=== PATIENT | male | born 1960 | race Caucasian/White ===

== ENCOUNTER 2020-04-25 01:36 | Inpatient (IN) | payer MEDICARE, MEDICAID ==
[~2020-04-25] VITALS: Ht 180.3 cm; Wt 86.0 kg
[~2020-04-25 01:36] MED LIST: ANDROGEL; ASPI-527 PO; FLAG500T PO; LEVA750T7 PO; LISI-542 PO; METF500T13 PO; MULTCAP PO; Mag Ox PO; OMEP1CAP73 PO; SIMV20TA22 PO; VIAG100T PO; VITA250T20 PO; ZINC220T6 PO
[2020-04-25] MEDS ORDERED: TEST1.622 TOP (02:00)
[2020-04-25] MEDS ORDERED: LIDOCAINE 2% 5ML JELLY UROJET TOP ONE (02:15)
[2020-04-25 02:26] LABS: HEMOGLOBIN 13.2 g/dl (13.5-17.5); MEAN CORPUSCULAR HEMOGLOBIN 30.7 pg (27.0-33.0); PLATELET COUNT, AUTOMATED 253 10^3/uL (150-450); WHITE BLOOD COUNT 10.6 10^3/uL (4.0-10.0)
[2020-04-25 03:22] LABS: BLOOD UREA NITROGEN 18 MG/DL (7-18); CALCIUM LEVEL 8.7 MG/DL (8.8-10.2); CARBON DIOXIDE LEVEL 23 MEQ/L (21-32); CHLORIDE LEVEL 96 MEQ/L (98-107); CREATININE FOR GFR 0.91 MG/DL (0.70-1.30); GLOMERULAR FILTRATION RATE > 60.0 (>49); GLUCOSE, FASTING 416 MG/DL (70-100); POTASSIUM SERUM 4.7 MEQ/L (3.5-5.1); SODIUM LEVEL 129 MEQ/L (136-145)
--- NOTE | 2020-04-25 04:26 | REPVR ---
PROCEDURE INFORMATION: Exam: CT Abdomen And Pelvis Without Contrast Exam date and time: 04/25/2020 3:23 AM Age: 59 years old Clinical indication: Other: Hematuria; Patient HX: Blood in catheter TECHNIQUE: Imaging protocol: Computed tomography of the abdomen and pelvis without contrast. Radiation optimization: All CT scans at this facility use at least one of these dose optimization techniques: automated exposure control; mA and/or kV adjustment per patient size (includes targeted exams where dose is matched to clinical indication); or iterative reconstruction. COMPARISON: CR Pelvis, complete 01/27/2014 9:19 PM FINDINGS: Mediastinal space: Small hiatal hernia. Liver: Hepatic steatosis. Gallbladder and bile ducts: Normal. No calcified stones. No ductal dilation. Pancreas: Normal. No ductal dilation. Spleen: Normal. No splenomegaly. Adrenals: Normal. No mass. Kidneys and ureters: There is right greater than left hydroureteronephrosis. No discrete obstructing calculus is visualized. Stomach and bowel: Diverticulosis without diverticulitis. Appendix: No evidence of appendicitis. Intraperitoneal space: Unremarkable. No free air. No significant fluid collection. Vasculature: Vascular calcification. Lymph nodes: Unremarkable. No enlarged lymph nodes. Bladder: Urinary bladder is decompressed by a Sun catheter. There are infiltrative changes about the urinary bladder. Reproductive: Unremarkable as visualized. Bones/joints: There are degenerative and postoperative changes involving the spine. There are degenerative changes involving the hips. Chronic deformity involving the right pelvis. Soft tissues: There is prominent decubitus ulceration at the right posterior pelvis. IMPRESSION: 1. Right greater than left hydroureteronephrosis without discrete obstructing calculus. 2. Urinary bladder is decompressed by a Sun catheter and suboptimally evaluated. There are however adjacent infiltrative changes concerning for possible cystitis. Please correlate clinically. 3. There is prominent decubitus ulceration at the right posterior pelvis/hip. 4. Additional findings as above. Electronically signed by: Doc Crawford On 04/25/2020 04:26:06 AM
[2020-04-25] MEDS ORDERED: DEXTROSE 50% 50 ML SYRINGE IV PRN (05:00)
[2020-04-25] MEDS ORDERED: GLUCAGON INJ 1MG VIAL SC PRN (05:00)
[2020-04-25] MEDS ORDERED: GLUCOSE 4GM CHEW TABLET PO PRN (05:00)
[2020-04-25] MEDS ORDERED: AMIT75TA PO (05:16)
[2020-04-25] MEDS ORDERED: ACET-683 PO (05:16)
[2020-04-25] MEDS ORDERED: SIMV40TA20 PO (05:16)
[2020-04-25] MEDS ORDERED: JANU100T PO (05:16)
[2020-04-25] MEDS ORDERED: METF-838 PO (05:17)
--- NOTE | 2020-04-25 05:50 | HPEPDOC ---
General Date of Admission 04/25/2020 Date of Service: Apr 25, 2020 Attending Physician: BJORN ADAMS MD Chief Complaint The patient is a 59-year-old male admitted with a reason for visit of Blood In Catheter. Source: Patient Exam Limitations: No limitations Timing/Duration: 24 hours Severity: Severe Associated Symptoms: Other (gross hematuria) History of Present Illness 59 yo M with paraplegia with a chronic indwelling phillip, DM2, stage 4 decubitus ulcer who presented to the ED with gross hematuria in his phillip. He otherwise denied any fever, chills, abdominal pain, back pain, recent weight loss. In the ED, he was hemodynamically stable and afebrile an his phillip was exchanged and placed on CBI with clearance of the gross hematuria. Urology was made aware of his presentation and will be officially consulted by medicine to see him tomorrow. Work up was notable for hgb 13.2, WBC 10.6, platelets 253, na 129, K 4.7, Cr 0.91, glucose of 416. CT A/P showed R>L hydroureteronephrosis without obvious calculus, while the bladder was decompressed with phillip in place but did show some infiltrative changes c/f cystitis. He is now being admitted to [facility] for gross hematuria and probable cystitis. Home Medications Scheduled Ascorbic Acid (Vitamin C) 250 Mg Tab, 500 MG PO BID, (Reported) Lisinopril (Lisinopril) 5 Mg Tab, 5 MG PO DAILY, (Reported) Metformin HCl (Metformin HCl ER) 500 Mg Tab.er.24h, 1,000 MG PO BID, (Reported) LUNCH AND DINNER Multivitamin (Multivitamins) 1 Cap Cap, 1 CAP PO DAILY, (Reported) LUNCH Omeprazole (Omeprazole) 20 Mg Cap, 20 MG PO DAILY, (Reported) Simvastatin (Simvastatin) 40 Mg Tablet, 40 MG PO QHS, (Reported) Sitagliptin Phosphate (Januvia) 100 Mg Tablet, 100 MG PO DAILY, (Reported) Testosterone (Testosterone) 75 Gm Gel..bridge [employer]enter, 150 GM TOP DAILY, (Reported) Scheduled PRN Acetaminophen (Acetaminophen) 500 Mg Tablet, 1,000 MG PO Q6H PRN for PAIN, (Reported) Amitriptyline HCl (Amitriptyline HCl) 75 Mg Tablet, 18.75 MG PO QHS PRN for LEG CRAMPS, (Reported) TAKES 1/4 TO 1 TABLET Allergies Coded Allergies: Penicillins (Verified Allergy, Unknown, 04/25/20) sulfamethoxazole (Verified Allergy, Unknown, 04/25/20) trimethoprim (Verified Allergy, Unknown, 04/25/20) Past Medical History Medical History paraplegia with a chronic indwelling phillip, DM2, stage 4 decubitus ulcer Family History Significant Family History: No pertinent family hx Social History * Smoker: Denies Alcohol: Denies Drugs: denies Recent Travel/Sick Contacts: Denies: Recent travel, Recent sick contacts Psychosocial History: No pertinent psych hx A-FIB/CHADSVASC A-FIB History Current/History of A-Fib/PAF?: No Current PO Anticoag Therapy: No Age/Risk Factor Scoring CHADSVASC: CHADSVASC Response (Comments) Value Age Risk Factor Age < 65 years old 0 Gender Risk Factor Male 0 Hx of CHF No 0 Hx of HTN Yes 1 Hx of Stroke/TIA/or VTE No 0 Hx of Diabetes Yes 1 Hx of Vascular Disease No 0 Total 2 Treatment Treatment ordered: NONE Reason Anticoagulant not given: Not indicated/[id number] Review of Systems Constitutional: Denies: Chills, Fever, Night Sweats Eyes: Denies: Pain, Vision change ENT: Denies: Head Aches, Ear Pain, Dysphagia Skin: Denies: Rash, Lesions, Breakdown Pulmonary: Denies: Dyspnea, Cough Cardiovascular: Denies: Chest Pain, Palpitations, Orthopnea, Paroxysmal Noc. Dy spnea, Lt Headedness Gastrointestinal: Denies: Nausea, Vomiting, Abdominal Pain, Diarrhea Genitourinary: Reports: Hematuria, Retention (chronic neurogenic bladder with chronic indwelling phillip); Denies: Dysuria, Frequency Hematologic: Denies: Bruising, Bleeding Excessively Endocrine: Denies: Polydipsia, Polyphagia, Polyuria, Heat Intolerance, Cold Intolerance, Other Endocrine Sx Musculoskeletal: Denies: Neck Pain, Back Pain, Joint Pain, Muscle Pain, Spasms Neurological: Denies: Weakness, Numbness, Change in speech, Confusion Psych: Reports: Mood Normal; Denies: Depression, Memory Issues Physical Examination General Exam: Positive: Alert, No Acute Distress Eye Exam: Positive: PERRLA, Conjunctiva & lids normal, EOMI; Negative: Sclera icteric ENT Exam: Positive: Atraumatic, Mucous membr. moist/pink, Pharynx Normal Neck Exam: Positive: Supple; Negative: JVD, thyromegaly Chest Exam: Positive: Clear to auscultation, Normal air movement Heart Exam: Positive: Rate Normal, Regular Rhythm, Normal S1, Normal S2; Negative: Murmurs, Rubs Abdomen Exam: Positive: Normal bowel sounds, Soft, Other (obese, with hyperpigmented/erythematous raised keloidal scars over abdomen); Negative: Tenderness Extremity Exam: Positive: Other Skin Exam: Positive: Other skin issue ( hyperpigmented/erythematous raised keloidal scars over abdomen with one with fresh scab, no drainage. Has sacral packed wound) Neuro Exam: Positive: Cranial Nerves 3-12 NL; Negative: Strength at 5/5 X4 ext (5/5 BLE. no strength in LE) Psych Exam: Positive: Mental status NL, Mood NL, Oriented x 3 Vital Signs Vital Signs Date Time Temp Pulse Resp B/P (MAP) Pulse Ox O2 Delivery O2 Flow Rate FiO2 04/25/20 04:31 104 18 97 Room Air 04/25/20 04:30 103/53 (70) 04/25/20 03:01 98.2 Laboratory Data Labs 24H Laboratory Tests 2 04/25/20 02:21: Nucleated Red Blood Cells % (auto) 0.0, Anion Gap 10, Glomerular Filtration Rate > 60.0, Calcium Level 8.7L 04/25/20 02:27: Bedside Glucose (Misc Panel) 419H CBC/BMP Laboratory Tests 04/25/20 02:21 Assessment/Plan 59 yo M with paraplegia with a chronic indwelling phillip, DM2, stage 4 decubitus ulcer who presented to the ED with gross hematuria in his phillip now being admitted to medicine for gross hematuria and probable cystitis. Gross hematuria in the setting of probable cystitis, with a chronic phillip -s/p CBI with resolution of hematuria -Urology aware, consultation order placed, day team to call in the morning -H/H stable -empirically treat for cystitis as below Probable cystitis -empiric cipro DM: -hold home januvia and metformin -SSI -FSBG AC/HS -hypoglycemia protocol GERD: -continue home lomeprazole Paraplegia: -continue home lelavil PRN HLD: -continue home lsimvastatin HTN: -continue home lisinopril DVT ppx: DMITRIY and sequentials Plan / VTE VTE Prophylaxis Ordered?: Yes BJORN ADAMS MD Apr 25, 2020 05:20
[2020-04-25 06:27] VITALS: BP 114/66
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
--- NOTE | 2020-04-25 07:49 | IPNPDOC ---
Date Seen The patient was seen on 04/25/20. Progress Note SUBJECTIVE: Patient was seen and examined at bedside. States that feels warm, feverish. Denies chest pain, n/v/d, shortness of breath. Denies abdominal pain. Hematuria has improved. He states that his draining wound on sacrum/buttock has been there for about 5 years. He has no sensation below waist. has not seen wound care. He changes dressings himself OBJECTIVE PHYSICAL EXAMINATION: VITAL SIGNS: Please see below. GENERAL: flushed apperance HEENT: PERRLA, EOMI CARDIOVASCULAR: RRR, normal S1, S2. RESPIRATORY: lungs CTAB. ABDOMINAL: soft, non tender BACK: noted draining ulcer on posterior R buttock, no obvious cellulitis. Sensation absent. EXTREMITIES: muscles wasting in BLE NEUROLOGICAL: parapalegic. No sensation below waist PSYCHOLOGICAL: calm, cooperative LABORATORY DATA, IMAGING STUDIES, MICROBIOLOGY: Please see below. CT abdo/pelvis: IMPRESSION: 1. Right greater than left hydroureteronephrosis without discrete obstructing calculus. 2. Urinary bladder is decompressed by a Phillip catheter and suboptimally evaluated. There are however adjacent infiltrative changes concerning for possible cystitis. Please correlate clinically. 3. There is prominent decubitus ulceration at the right posterior pelvis/hip. 4. Additional findings as above. Renal US: IMPRESSION: Mild right hydronephrosis. Mild prominence the left renal pelvis. DVT prophylaxis ordered?: Lovenox ASSESSMENT AND PLAN: 59 yo M with paraplegia with a chronic indwelling phillip, DM2, stage 4 decubitus ulcer who presented to the ED with gross hematuria in his phillip now being admitted to medicine for gross hematuria and probable cystitis. Given large draining posterior hip/pelvic wound, obtain MRI pelvis to r/o osteomyelitis. Gross hematuria in the setting of probable cystitis, with a chronic phillip - patient changes phillip at home [id number] - CBI overnight, hematuria significantly improved, phillip draining light tea colored urine - HH stable - urology consulted, renal US reviewed. Hydronephrosis improved. C.w monthly phillip changes. Hematuria likely 2/2 cystitis draining sacral decubitus ulcer suspected osteomyelitis - CT c/w posterio pelvic/hip ulcer - on exam, deep, draining - has no wound care f/u - uncontrolled DM2 - given fever, leukocytosis, will obtain MRI wwo contrast to r/o osteomyelitis - continue cipro 400 mg q12h, add vancomycin - obtain blood cultures - MRSA screen - wound care with Dr. Alberto, will call in am Probable cystitis -ciprofloxacin - f/u urine cx DM2: - hold home januvia and metformin - A1c 10.5 - SSI - FSBG AC/HS - BG 400s - start lantus 10 units qhs - lispro 5 units TIDAC - hypoglycemia protocol GERD: -continue home lomeprazole Paraplegia: -continue home lelavil PRN - q2h turning HLD: -continue home simvastatin HTN: -continue home lisinopril DVT ppx: DMITRIY and sequentials VS, I&O, 24H, Fishbone Vital Signs/I&O Vital Signs Date Time Temp Pulse Resp B/P (MAP) Pulse Ox O2 Delivery O2 Flow Rate FiO2 04/25/20 06:27 99.4 118 20 114/66 (82) 96 Room Air Laboratory Data 24H LABS Laboratory Tests 2 04/25/20 02:21: Nucleated Red Blood Cells % (auto) 0.0, Anion Gap 10, Glomerular Filtration Rate > 60.0, Calcium Level 8.7L 04/25/20 02:27: Bedside Glucose (Misc Panel) 419H 04/25/20 07:33: Bedside Glucose (Misc Panel) 378H CBC/BMP Laboratory Tests 04/25/20 02:21 Microbiology Microbiology 04/25/20 Urine Culture, Received Pending BANDAR SEGOVIA MD Apr 25, 2020 07:49
[2020-04-25] MEDS: HumaLOG INSULIN (NovoLOG) PER UNIT SC SCH ×4 (08:48→22:36)
[2020-04-25 08:58] LABS: THYROID STIMULATING HORMONE 1.54 uIU/ML (0.358-3.740)
[2020-04-25] MEDS ORDERED: CIPROFLOXACIN 400 MG in IV 1 EA IV SCH (09:00)
[2020-04-25 09:37] LABS: HEMOGLOBIN A1c 10.5 %
--- NOTE | 2020-04-25 09:55 | REPVR ---
PROCEDURE INFORMATION: Exam: US Retroperitoneal Limited, Kidneys Exam date and time: 04/25/2020 9:41 AM Age: 59 years old Clinical indication: Condition or disease; Other: Marvin hydroureteronephrosis; Additional info: Bl hydroureteronephrosis. With resistive indices please TECHNIQUE: Imaging protocol: Real-time ultrasound of the retroperitoneum with image documentation. Examination was focused on the kidneys. COMPARISON: CT ABD PELVIS W/O CONTRAST 04/25/2020 3:28 AM FINDINGS: Right kidney: Mild right hydronephrosis. Right renal resistive indices range from 0.58 to 0.7. Left kidney: Left renal resistive indices range from 0.67-0.73. Mild prominence the left renal pelvis Bladder: Urinary bladder is contracted around Sun balloon catheter. IMPRESSION: Mild right hydronephrosis. Mild prominence the left renal pelvis Electronically signed by: Vicente Delgado On 04/25/2020 09:55:05 AM
[2020-04-25 11:23] LABS: TOTAL 25(OH) VITAMIN D 29.8 NG/ML (30.0-100.0)
[2020-04-25 11:43] LABS: FOLATE 16.6 NG/ML (>5.4)
[2020-04-25 14:00] VITALS: BP 129/60
[2020-04-25] MEDS: ACETAMINOPHEN TAB 650MG DOSE (2X325MG) PO PRN ×3 (14:20→23:54)
--- NOTE | 2020-04-25 18:18 | IPNPDOC ---
Subjective Review oF Systems Chief Complaint The patient is a 59-year-old male admitted with a reason for visit of Bilateral Hydronephrosis. Events since Last Encounter Renal ultrasound performed after the bladder was irrigated showed normal bilateral resistive indices General: Reports: Normal Appetite; Denies: Fatigue, Malaise Objective Physical Examination General Exam: Alert, No Acute Distress Heart Exam: Positive: Rate Normal, Regular Rhythm, Normal S1, Normal S2; Negative: Murmurs, Rubs Vital Signs/I&O Vital Signs Date Time Temp Pulse Resp B/P (MAP) Pulse Ox O2 Delivery O2 Flow Rate FiO2 04/25/20 14:00 100.5 109 19 129/60 (83) 93 Room Air Laboratory Data Labs 24H Laboratory Tests 2 04/25/20 02:21: Nucleated Red Blood Cells % (auto) 0.0, Anion Gap 10, Glomerular Filtration Rate > 60.0, Calcium Level 8.7L 04/25/20 02:27: Bedside Glucose (Misc Panel) 419H 04/25/20 07:33: Bedside Glucose (Misc Panel) 378H 04/25/20 07:57: Estimated Mean Plasma Glucose 255H, Hemoglobin A1c 10.5, Vitamin B12 Level 927H, 25-Hydroxy Vitamin D Total 29.8L, Folate 16.6, Thyroid Stimulating Hormone (TSH) 1.540 04/25/20 11:54: Bedside Glucose (Misc Panel) 355H 04/25/20 16:55: Bedside Glucose (Misc Panel) 408H CBC/BMP Laboratory Tests 04/25/20 02:21 FSBS Laboratory Tests Test 04/25/20 02:27 04/25/20 07:33 04/25/20 11:54 04/25/20 16:55 Range/Units Bedside Glucose (Misc Panel) 419 378 355 408 80-115 MG/DL Microbiology Microbiology 04/25/20 Urine Culture, Received Pending Assessment/Plan Date Seen The patient was seen on 04/25/20. Patient Summary The hydronephrois has resolved since phillip insertion. The resistive indices are the same on both sides. This would indicate no clinical obstruction of the ureters. Plan/VTE VTE Prophylaxis Ordered?: Yes Plan Continue phillip cath and monthly changes. Awaiting urine cultures. Hematuria likely due to UTI. Activity: Encourage Ambulation HARRIETT MACKEY MD Apr 25, 2020 18:18
[2020-04-25] MEDS ORDERED: VANCOMYCIN HCL 1,300 MG in IV FLUID PLACE HOLDER 1 EA IV SCH (20:00)
[2020-04-25] MEDS ORDERED: CEFEPIME HCL 2 GM in D5W MINI-BAG PLUS 50 ML IV SCH (21:00)
[2020-04-25 22:00] VITALS: BP 124/74
[2020-04-25] MEDS: LEVEMIR (INSULIN DETEMIR) 1 UNITS/0.01ML SC SCH (22:37)
[2020-04-25] MEDS: CIPROFLOXACIN 400 MG in IV 1 EA IV SCH (22:37)
[2020-04-25] MEDS: VANCOMYCIN HCL 1,000 MG, VIAL MATE ADAPTER 1 EACH in D5W 250 ML IV SCH (23:54)
[2020-04-26] MEDS: VANCOMYCIN HCL 1,000 MG, VIAL MATE ADAPTER 1 EACH in D5W 250 ML IV SCH ×4 (01:43→22:41)
[2020-04-26] MEDS ORDERED: oxyBUTYnin 5 MG TAB PO ONE (05:30)
[2020-04-26] MEDS: ACETAMINOPHEN TAB 650MG DOSE (2X325MG) PO PRN (05:39)
[2020-04-26 06:00] VITALS: BP 123/74
[2020-04-26 07:53] LABS: BASO % 0.5 % (0.0-1.0); EOS # 0.1 10^3/uL (0.0-0.5); EOS % 1.6 % (0.0-3.0); HEMATOCRIT 36.8 % (42.0-52.0); HEMOGLOBIN 12.2 g/dl (13.5-17.5); LYMPH # 0.3 10^3/uL (1.5-5.0); LYMPH % 5.8 % (24.0-44.0); MEAN CORPUSCULAR HEMOGLOBIN 30.7 pg (27.0-33.0); MEAN CORPUSCULAR HGB CONC 33.2 g/dl (32.0-36.5); MEAN CORPUSCULAR VOLUME 92.7 fl (80.0-96.0); MONO # 0.6 10^3/uL (0.0-0.8); MONO % 11.1 % (0.0-5.0); NEUTROPHILS # 4.5 10^3/uL (1.5-8.5); NEUTROPHILS % 79.8 % (36.0-66.0); PLATELET COUNT, AUTOMATED 208 10^3/uL (150-450); RED BLOOD COUNT 3.97 10^6/uL (4.30-6.10); WHITE BLOOD COUNT 5.7 10^3/uL (4.0-10.0)
[2020-04-26 08:15] LABS: ALBUMIN 2.8 GM/DL (3.2-5.2); ALT/SGPT 17 U/L (12-78); BILIRUBIN,TOTAL 0.4 MG/DL (0.2-1.0); BLOOD UREA NITROGEN 11 MG/DL (7-18); CALCIUM LEVEL 8.1 MG/DL (8.8-10.2); CARBON DIOXIDE LEVEL 25 MEQ/L (21-32); CHLORIDE LEVEL 99 MEQ/L (98-107); CREATININE FOR GFR 0.53 MG/DL (0.70-1.30); GLOMERULAR FILTRATION RATE > 60.0 (>49); GLUCOSE, FASTING 296 MG/DL (70-100); MAGNESIUM LEVEL 2.1 MG/DL (1.8-2.4); POTASSIUM SERUM 3.8 MEQ/L (3.5-5.1); SODIUM LEVEL 130 MEQ/L (136-145); TOTAL PROTEIN 6.6 GM/DL (6.4-8.2)
[2020-04-26] MEDS: CIPROFLOXACIN 400 MG in IV 1 EA IV SCH ×2 (08:47→20:48)
[2020-04-26] MEDS: NS 1,000 ML IV SCH ×2 (08:47→20:39)
[2020-04-26] MEDS: HumaLOG INSULIN (NovoLOG) PER UNIT SC SCH ×6 (08:48→20:39)
[2020-04-26] MEDS ORDERED: FLUBLOK(EGG FREE)(QUAD)INFLUENZA VACC 0.5ML SYRINGE 18YRS & OLDER IM ONE (09:00)
[2020-04-26] MEDS: oxyBUTYnin *DITROPAN XL* 5 MG TABCR PO SCH (10:32)
--- NOTE | 2020-04-26 11:22 | IPNPDOC ---
Date Seen The patient was seen on 04/26/20. Progress Note Progress Note SUBJECTIVE: Patient was seen and examined at bedside. States feels better today. Denies chest pain, n/v/d, shortness of breath. Denies abdominal pain. Hematuria has improved. He states that his draining wound on sacrum/buttock has been there for about 5 years. He has no sensation below waist. has not seen wound care. He changes dressings himself. Reports history of prior osteomyelitis at sacral site. OBJECTIVE PHYSICAL EXAMINATION: VITAL SIGNS: Please see below. GENERAL: flushed appearance HEENT: PERRLA, EOMI CARDIOVASCULAR: RRR, normal S1, S2. RESPIRATORY: lungs CTAB. ABDOMINAL: soft, non tender BACK: noted draining ulcer on posterior R buttock, no obvious cellulitis. Se nsation absent. EXTREMITIES: muscles wasting in BLE NEUROLOGICAL: parapalegic. No sensation below waist PSYCHOLOGICAL: calm, cooperative LABORATORY DATA, IMAGING STUDIES, MICROBIOLOGY: Please see below. CT abdo/pelvis: IMPRESSION: 1. Right greater than left hydroureteronephrosis without discrete obstructing calculus. 2. Urinary bladder is decompressed by a Phillip catheter and suboptimally evaluated. There are however adjacent infiltrative changes concerning for possible cystitis. Please correlate clinically. 3. There is prominent decubitus ulceration at the right posterior pelvis/hip. 4. Additional findings as above. Renal US: IMPRESSION: Mild right hydronephrosis. Mild prominence the left renal pelvis. DVT prophylaxis ordered?: Lovenox ASSESSMENT AND PLAN: 59 yo M with paraplegia with a chronic indwelling phillip, DM2, stage 4 decubitus ulcer who presented to the ED with gross hematuria in his phillip now being admitted to medicine for gross hematuria and probable cystitis. Given large draining posterior hip/pelvic wound, obtain MRI pelvis to r/o osteomyelitis. Gross hematuria in the setting of probable cystitis, with a chronic phillip - patient changes phillip at home q6nmpyh - CBI overnight, hematuria significantly improved, phillip draining light tea colored urine - HH stable - urology consulted, renal US reviewed. Hydronephrosis improved. C.w monthly phillip changes. Hematuria likely 2/2 cystitis draining sacral decubitus ulcer suspected osteomyelitis - CT c/w posterio pelvic/hip ulcer - on exam, deep, draining - has no wound care f/u - uncontrolled DM2 - given fever, leukocytosis, will obtain MRI wwo contrast to r/o osteomyelitis - continue cipro 400 mg q12h, add vancomycin - obtain blood cultures - MRSA screen - consult wound care Dr. Alberto Probable cystitis -ciprofloxacin - f/u urine cx DM2: - hold home januvia and metformin - A1c 10.5 - SSI - FSBG AC/HS - BG 400s - start lantus 10 units qhs - lispro 5 units TIDAC - hypoglycemia protocol GERD: -continue home lomeprazole Paraplegia: -continue home lelavil PRN - q2h turning HLD: -continue home simvastatin HTN: -continue home lisinopril Hyponatremia - NS 100 cc/hr DVT ppx: DMITRIY and sequentials VS, I&O, 24H, Fishbone Vital Signs/I&O Vital Signs Date Time Temp Pulse Resp B/P (MAP) Pulse Ox O2 Delivery O2 Flow Rate FiO2 04/26/20 06:00 97.5 95 17 123/74 (90) 100 Room Air I&O- Last 24 Hours up to 6 AM 04/26/20 06:00 Intake Total 2200 ml Output Total 2155 ml Balance 45 ml Laboratory Data 24H LABS Laboratory Tests 2 04/25/20 11:54: Bedside Glucose (Misc Panel) 355H 04/25/20 16:55: Bedside Glucose (Misc Panel) 408H 04/26/20 07:26: Immature Granulocyte % (Auto) 1.2, Neutrophils (%) (Auto) 79.8H, Lymphocytes (%) (Auto) 5.8L, Monocytes (%) (Auto) 11.1H, Eosinophils (%) (Auto) 1.6, Basophils (%) (Auto) 0.5, Neutrophils # (Auto) 4.5, Lymphocytes # (Auto) 0.3L, Monocytes # (Auto) 0.6, Eosinophils # (Auto) 0.1, Basophils # (Auto) 0.0, Nucleated Red Blood Cells % (auto) 0.0, Anion Gap 6L, Glomerular Filtration Rate > 60.0, Calcium Level 8.1L, Magnesium Level 2.1, Total Bilirubin 0.4, Aspartate Amino Transf (AST/SGOT) 13, Alanine Aminotransferase (ALT/SGPT) 17, Alkaline Phosphatase 104, Total Protein 6.6, Albumin 2.8L, Albumin/Globulin Ratio 0.7 CBC/BMP Laboratory Tests 04/26/20 07:26 Microbiology Microbiology 04/25/20 Blood Culture, Received Pending 04/25/20 Urine Culture, Received Pending BANDAR SEGOVIA MD Apr 26, 2020 11:22
[2020-04-26] MEDS ORDERED: PROHANCE 279.3MG/ML 5ML VIAL As Ordered ONE (12:56)
[2020-04-26] MEDS ORDERED: PROHANCE 279.3MG/ML 15ML VIAL As Ordered ONE (12:57)
[2020-04-26] MEDS ORDERED: BELLADONNA 16.2mg/OPIUM 60mg 1 EA SUPP PR ONE (14:15)
[2020-04-26 14:40] VITALS: BP 120/74
--- NOTE | 2020-04-26 14:54 | REPVR ---
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 Exam focused on the musculoskeletal system. Contrast material: PROHANCE; Contrast volume: 16 ml; Contrast route: INTRAVENOUS (IV); COMPARISON: CT ABD PELVIS W/O CONTRAST 04/25/2020 3:28 AM FINDINGS: Tubes, catheters and devices: Bladder is decompressed around a Sun catheter which is positioned within the bladder. Lymph nodes: Several presacral lymph nodes including 1.5 cm left internal iliac lymph node Bones/joints: Focal skin ulcer noted over the sacrum beginning at approximately level S3 and extending through the superior margin of the 5th sacral segment. The ulcer extends up to the periosteum of the sacrum beginning at approximately level S3. Contrast enhancement is suggested of the periosteum of the lower sacrum. . Soft tissues: Relative increased signal noted of the exiting nerve roots from the left alta sacrum on the unenhanced T2 weighted . On the postcontrast images, there is enhancement noted along the bhatt of the skin ulceration but no evidence of nerve root enhancement L5-S1 disc space: Increased T2 signal within the disc.Radial annular tear noted anteriorly and posteriorly at L5-S1. Posterior central disc protrusion at L5-S1. Facet arthropathy present. On the postcontrast images minimal enhancement of the disc noted at the level of the annular tear IMPRESSION: 1. Skin ulceration of the sacrum extends up to the bone. Minimal enhancement suggested of periosteum along posterior margin of sacrum from inferior aspect of S3 vertebral body S3 through S4 suggests possibility of periostitis 2. Radial annular tears noted at L5-S1. On the postcontrast images, there appears to be enhancement only at the level of the radial annular tears. As such, discitis considered less likely but images were not acquired in the sagittal projection postcontrast which would optimize visualization of the disc space. MR examination of the lumbar spine without and with gadolinium might be considered to exclude discitis and epidural enhancement Electronically signed by: Argenis Cowan On 04/26/2020 14:54:14 PM
--- NOTE | 2020-04-26 19:14 | IPNPDOC ---
Subjective Review oF Systems Chief Complaint The patient is a 59-year-old male admitted with a reason for visit of Bilateral Hydronephrosis. Events since Last Encounter Patient has been experiencing a lot of bladder spasms not responding to Ditropan or B&O suppositories General: Reports: Normal Appetite; Denies: Fatigue, Malaise Constitutional: Denies: Fever, Chills, Sweats, Weakness, Malaise Eyes: Denies: Pain, Vision change ENT: Denies: Head Aches, Sore Throat, Epistaxis Skin: Denies: Rash, Lesions, Breakdown, Nail Changes Pulmonary: Denies: Dyspnea, Cough Cardiovascular: Denies Chest Pain, Denies Palpitations Gastrointestinal: Denies: Nausea, Vomiting, Abdominal Pain Objective Physical Examination General Exam: Alert, No Acute Distress Eye Exam: PERRLA, Conjunctiva & lids normal, EOMI; No: Sclera icteric ENT EXAM: Atraumatic, Mucous membr. moist/pink, Pharynx Normal Neck Exam: Supple; No: JVD, thyromegaly Chest Exam: Clear to auscultation, Normal air movement Heart Exam: Positive: Rate Normal, Regular Rhythm, Normal S1, Normal S2; Negative: Murmurs, Rubs Other physical findings 24 fr 3 wasy phillip cath draining clear without CBI. 30 cc balloon was reduced to 15 cc and leakage seemed to improve. Vital Signs/I&O Vital Signs Date Time Temp Pulse Resp B/P (MAP) Pulse Ox O2 Delivery O2 Flow Rate FiO2 04/26/20 14:40 99.3 90 18 120/74 (89) 100 Room Air I&O- Last 24 Hours up to 6 AM 04/26/20 06:00 Intake Total 2200 ml Output Total 2155 ml Balance 45 ml Laboratory Data Labs 24H Laboratory Tests 2 04/26/20 07:26: Immature Granulocyte % (Auto) 1.2, Neutrophils (%) (Auto) 79.8H, Lymphocytes (%) (Auto) 5.8L, Monocytes (%) (Auto) 11.1H, Eosinophils (%) (Auto) 1.6, Basophils (%) (Auto) 0.5, Neutrophils # (Auto) 4.5, Lymphocytes # (Auto) 0.3L, Monocytes # (Auto) 0.6, Eosinophils # (Auto) 0.1, Basophils # (Auto) 0.0, Nucleated Red Blood Cells % (auto) 0.0, Anion Gap 6L, Glomerular Filtration Rate > 60.0, Calcium Level 8.1L, Magnesium Level 2.1, Total Bilirubin 0.4, Aspartate Amino Transf (AST/SGOT) 13, Alanine Aminotransferase (ALT/SGPT) 17, Alkaline Phosphatase 104, Total Protein 6.6, Albumin 2.8L, Albumin/Globulin Ratio 0.7 04/26/20 11:26: Bedside Glucose (Misc Panel) 341H 04/26/20 16:23: Bedside Glucose (Misc Panel) 210H CBC/BMP Laboratory Tests 04/26/20 07:26 FSBS Laboratory Tests Test 04/26/20 11:26 04/26/20 16:23 Range/Units Bedside Glucose (Misc Panel) 341 210 80-115 MG/DL Microbiology Microbiology 04/25/20 Blood Culture, Received Pending 04/25/20 Urine Culture, Received Pending Assessment/Plan Date Seen The patient was seen on 04/26/20. Plan/VTE VTE Prophylaxis Ordered?: Yes Plan Because he is having spasms and no longer exhibiting hematuria, I had the phillip changed to an [address] cath[address] Will continue to monitor for leaking. Activity: Encourage Ambulation HARRIETT MACKEY MD Apr 26, 2020 19:13
[2020-04-26] MEDS: LEVEMIR (INSULIN DETEMIR) 1 UNITS/0.01ML SC SCH (20:48)
[2020-04-26 22:00] VITALS: BP 136/75
[2020-04-27] MEDS: NS 1,000 ML IV SCH (03:25)
[2020-04-27 05:14] LABS: BASO % 0.7 % (0.0-1.0); EOS # 0.2 10^3/uL (0.0-0.5); EOS % 3.4 % (0.0-3.0); HEMATOCRIT 37.8 % (42.0-52.0); HEMOGLOBIN 12.7 g/dl (13.5-17.5); LYMPH # 0.7 10^3/uL (1.5-5.0); LYMPH % 12.1 % (24.0-44.0); MEAN CORPUSCULAR HEMOGLOBIN 31.1 pg (27.0-33.0); MEAN CORPUSCULAR HGB CONC 33.6 g/dl (32.0-36.5); MEAN CORPUSCULAR VOLUME 92.6 fl (80.0-96.0); MONO # 0.7 10^3/uL (0.0-0.8); NEUTROPHILS # 3.8 10^3/uL (1.5-8.5); NEUTROPHILS % 70.1 % (36.0-66.0); PLATELET COUNT, AUTOMATED 224 10^3/uL (150-450); RED BLOOD COUNT 4.08 10^6/uL (4.30-6.10); WHITE BLOOD COUNT 5.4 10^3/uL (4.0-10.0)
[2020-04-27 05:44] LABS: ALBUMIN 2.8 GM/DL (3.2-5.2); ALT/SGPT 22 U/L (12-78); BILIRUBIN,TOTAL 0.4 MG/DL (0.2-1.0); BLOOD UREA NITROGEN 8 MG/DL (7-18); CALCIUM LEVEL 7.9 MG/DL (8.8-10.2); CARBON DIOXIDE LEVEL 23 MEQ/L (21-32); CHLORIDE LEVEL 105 MEQ/L (98-107); CREATININE FOR GFR 0.56 MG/DL (0.70-1.30); GLOMERULAR FILTRATION RATE > 60.0 (>49); GLUCOSE, FASTING 244 MG/DL (70-100); POTASSIUM SERUM 3.6 MEQ/L (3.5-5.1); SODIUM LEVEL 136 MEQ/L (136-145); TOTAL PROTEIN 6.9 GM/DL (6.4-8.2); VANCOMYCIN LEVEL TROUGH 15.1 UG/ML (10.0-20.0)
[2020-04-27 06:00] VITALS: BP 134/81
[2020-04-27] MEDS: VANCOMYCIN HCL 1,000 MG, VIAL MATE ADAPTER 1 EACH in D5W 250 ML IV SCH ×2 (06:07→13:58)
[2020-04-27] MEDS: oxyBUTYnin *DITROPAN XL* 5 MG TABCR PO SCH (07:55)
[2020-04-27] MEDS: CIPROFLOXACIN 400 MG in IV 1 EA IV SCH (07:55)
[2020-04-27] MEDS: HumaLOG INSULIN (NovoLOG) PER UNIT SC SCH ×2 (07:56→12:49)
--- NOTE | 2020-04-27 11:53 | IPNPDOC ---
Subjective Review oF Systems Chief Complaint The patient is a 59-year-old male admitted with a reason for visit of Bilateral Hydronephrosis. Events since Last Encounter Urine has remained clear after changing 3-way phillip to an [address] No complaints of spasms General: Reports: Normal Appetite; Denies: Fatigue, Malaise Constitutional: Denies: Fever, Chills, Sweats, Weakness, Malaise Eyes: Denies: Pain, Vision change Skin: Denies: Rash, Lesions, Breakdown, Nail Changes Genitourinary: Denies: Dysuria, Frequency, Incontinence, Hematuria Hematologic: Denies: Bruising, Bleeding Excessively Objective Physical Examination General Exam: Alert, No Acute Distress Eye Exam: PERRLA, Conjunctiva & lids normal, EOMI; No: Sclera icteric ENT EXAM: Atraumatic, Mucous membr. moist/pink, Pharynx Normal Neck Exam: Supple; No: JVD, thyromegaly Chest Exam: Clear to auscultation, Normal air movement Heart Exam: Positive: Rate Normal, Regular Rhythm, Normal S1, Normal S2; Negative: Murmurs, Rubs Vital Signs/I&O Vital Signs Date Time Temp Pulse Resp B/P (MAP) Pulse Ox O2 Delivery O2 Flow Rate FiO2 04/27/20 06:00 98.7 86 18 134/81 (98) 98 Room Air I&O- Last 24 Hours up to 6 AM 04/27/20 05:59 Intake Total 1010 ml Output Total 900 ml Balance 110 ml Laboratory Data Labs 24H Laboratory Tests 2 04/26/20 16:23: Bedside Glucose (Misc Panel) 210H 04/26/20 20:39: Bedside Glucose (Misc Panel) 240H 04/27/20 04:59: Immature Granulocyte % (Auto) 0.7, Neutrophils (%) (Auto) 70.1H, Lymphocytes (%) (Auto) 12.1L, Monocytes (%) (Auto) 13.0H, Eosinophils (%) (Auto) 3.4H, Basophils (%) (Auto) 0.7, Neutrophils # (Auto) 3.8, Lymphocytes # (Auto) 0.7L, Monocytes # (Auto) 0.7, Eosinophils # (Auto) 0.2, Basophils # (Auto) 0.0, Nucleated Red Blood Cells % (auto) 0.0, Anion Gap 8, Glomerular Filtration Rate > 60.0, Calcium Level 7.9L, Total Bilirubin 0.4, Aspartate Amino Transf (AST/SGOT) 19, Alanine Aminotransferase (ALT/SGPT) 22, Alkaline Phosphatase 106, Total Protein 6.9, Albumin 2.8L, Albumin/Globulin Ratio 0.7, Vancomycin Level Trough 15.1 CBC/BMP Laboratory Tests 04/27/20 04:59 FSBS Laboratory Tests Test 04/26/20 16:23 04/26/20 20:39 Range/Units Bedside Glucose (Misc Panel) 210 240 80-115 MG/DL Microbiology Microbiology 04/25/20 Blood Culture - Preliminary, Resulted No growth after 24 hours . All specim... 04/25/20 Urine Culture - Final, Complete No growth Assessment/Plan Date Seen The patient was seen on 04/27/20. Plan/VTE VTE Prophylaxis Ordered?: Yes Plan Continue phillip cath with 18 fr. May be discharged with this cath urine negative c/s Hct stable urologically stable and may be discharged from a urologic standpoint. Activity: Encourage Ambulation HARRIETT MACKEY MD Apr 27, 2020 11:53
[2020-04-27 14:00] VITALS: BP 140/77
[2020-04-27] MEDS ORDERED: DITR5TAB PO (14:05)
[2020-04-27] MEDS ORDERED: CIPR-249 PO (14:05)
--- NOTE | 2020-04-27 14:45 | DS.PDOC ---
Discharge Summary General Date of Admission Apr 25, 2020 at 04:52 Date of Discharge 04/27/20 Discharge Summary PROCEDURES PERFORMED DURING STAY: [None]. ADMITTING DIAGNOSES: Gross hematuria in the setting of probable cystitis, with a chronic phillip Probable cystitis DM2 GERD Paraplegia HLD HTN Sacral decubitus ulcer DISCHARGE DIAGNOSES: Gross hematuria in the setting of probable cystitis, with a chronic phillip Probable cystitis DM2 GERD Paraplegia HLD HTN COMPLICATIONS/CHIEF COMPLAINT: Bilateral Hydronephrosis. HISTORY OF PRESENT ILLNESS: 59 yo M with paraplegia with a chronic indwelling phillip, DM2, stage 4 decubitus ulcer who presented to the ED with gross hematuria in his phillip. He otherwise denied any fever, chills, abdominal pain, back pain, recent weight loss. In the ED, he was hemodynamically stable and afebrile an his phillip was exchanged and placed on CBI with clearance of the gross hematuria. Urology was made aware of his presentation and will be officially consulted by medicine to see him tomorrow. Work up was notable for hgb 13.2, WBC 10.6, platelets 253, na 129, K 4.7, Cr 0.91, glucose of 416. CT A/P showed R>L hydroureteronephrosis without obvious calculus, while the bladder was decompressed with phillip in place but did show some infiltrative changes c/f cystitis. He is now being admitted to medicine for gross hematuria and probable cystitis. HOSPITAL COURSE: Gross hematuria in the setting of probable cystitis, with a chronic phillip - patient changes phillip at home [id number] - CBI overnight, hematuria significantly improved, phillip draining light tea colored urine - HH stable - urology consulted, renal US reviewed. Hydronephrosis improved. C.w monthly phillip changes. Hematuria likely 2/2 cystitis - phillip cather leaked, replaced to 18fr, leak resolved - c/w oxybutinin - follow up with urology as outpatient. draining sacral decubitus ulcer suspected osteomyelitis - CT c/w posterior pelvic/hip ulcer - on exam, deep, draining serosanguinous flid - has no wound care f/u - uncontrolled DM2 - mild fever, leukocytosis attributed to suspected cystitis - reviewed MRI pelvis results with orthopedics - Dr. Gonzalez. Chronic appearance, edema around ulcer. Low concern for active osteolyelitis/discitis. - spoke with Dr. Fernandez, given chronic MRI changes, no obvious imaging findings for osteo/discitis, no recommendation for custodial antibiotics. - patient declined further imaging MRI lumbar spine wwo contrast - DC vancomycin - continue cipro for cystitis. - MRSA screen - consult wound care Dr. Alberto, unable to obtain. Outpatient visit. Probable cystitis -ciprofloxacin - Urine culture negative - prelim blood cultures negative - continue cipro 500 mg q12h PO through 05/02/20 DM2: - A1c 10.5 - SSI - FSBG AC/HS - patient refuses insulin on DC, reports being poorly compliant with CC diet at home - will resume metformin and januvia on DC - has glucometer at home - stressed close PCP follow up GERD: -continue home lomeprazole Paraplegia: -continue home lelavil PRN - q2h turning HLD: -continue home simvastatin HTN: -continue home lisinopril Hyponatremia - resolved, treated with IV NS DISCHARGE MEDICATIONS: Please see below. ALLERGIES: Please see below. PHYSICAL EXAMINATION ON DISCHARGE: VITAL SIGNS: Please see below. GENERAL: comfortable HEENT: PERRLA, EOMI CARDIOVASCULAR: RRR, normal S1, S2. RESPIRATORY: lungs CTAB. ABDOMINAL: soft, non tender BACK: ulcer on posterior R buttock, no obvious cellulitis. Sensation absent. EXTREMITIES: muscles wasting in BLE NEUROLOGICAL: parapalegic. No sensation below waist PSYCHOLOGICAL: calm, cooperative LABORATORY DATA: Please see below. IMAGING: CT abdo pelvis (04/25/20): 1. Right greater than left hydroureteronephrosis without discrete obstructing calculus. 2. Urinary bladder is decompressed by a Phillip catheter and suboptimally evaluated. There are however adjacent infiltrative changes concerning for possible cystitis. Please correlate clinically. 3. There is prominent decubitus ulceration at the right posterior pelvis/hip. 4. Additional findings as above. Renal US (04/25/20): Right kidney: Mild right hydronephrosis. Right renal resistive indices range from 0.58 to 0.7. Left kidney: Left renal resistive indices range from 0.67-0.73. Mild prominence the left renal pelvis Bladder: Urinary bladder is contracted around Phillip balloon catheter. IMPRESSION: Mild right hydronephrosis. Mild prominence the left renal pelvis MRI pelvis (04/26/20) 1. Skin ulceration of the sacrum extends up to the bone. Minimal enhancement suggested of periosteum along posterior margin of sacrum from inferior aspect of S3 vertebral body S3 through S4 suggests possibility of periostitis 2. Radial annular tears noted at L5-S1. On the postcontrast images, there appears to be enhancement only at the level of the radial annular tears. As such, discitis considered less likely but images were not acquired in the sagittal projection postcontrast which would optimize visualization of the disc space. MR examination of the lumbar spine without and with gadolinium might be considered to exclude discitis and epidural enhancement PROGNOSIS: good ACTIVITY: [As tolerated]. DIET: consistent carbohydrate DISCHARGE PLAN: PCP follow up in 2-3 days and follow up with urology. Complete PO ciprofloxacin 500 mg twice per day for an additional 5 days. DISPOSITION: . DISCHARGE INSTRUCTIONS: PLEASE FOLLOW UP WITH YOUR PRIMARY CARE DOCTOR WITHIN 3-5 DAYS PLEASE FOLLOW UP WITH UROLOGY WITHIN 2 WEEKS PLEASE TAKE YOUR MEDICATIONS PRESCRIBED: CONTINUE ANTIBIOTIC FOR 5 ADDITIONAL DAYS I CIPROFLOXACIN 500 MG TAB TWICE PER DAY. IF YOU DEVELOP BLOOD IN YOUR URINE, CHEST PAIN, SHORTNESS OF BREATH, FEVERS, CHILLS, BLEEDING OR OTHERWISE WORSENING FO YOUR SYMPTOMS, PLEASE CALL 911 OR RETURN TO THE EMERGENCY DEPARTMENT. ITEMS TO FOLLOWUP ON ON OUTPATIENT: 1. Diabetes management 2. Final blood cultures DISCHARGE CONDITION: [Stable]. TIME SPENT ON DISCHARGE: Greater than 30 minutes. Vital Signs/I&Os Vital Signs Date Time Temp Pulse Resp B/P (MAP) Pulse Ox O2 Delivery O2 Flow Rate FiO2 04/27/20 06:00 98.7 86 18 134/81 (98) 98 Room Air I&O- Last 24 Hours up to 6 AM 04/27/20 05:59 Intake Total 1010 ml Output Total 900 ml Balance 110 ml Laboratory Data Labs 24H Laboratory Tests 2 04/26/20 16:23: Bedside Glucose (Misc Panel) 210H 04/26/20 20:39: Bedside Glucose (Misc Panel) 240H 04/27/20 04:59: Immature Granulocyte % (Auto) 0.7, Neutrophils (%) (Auto) 70.1H, Lymphocytes (%) (Auto) 12.1L, Monocytes (%) (Auto) 13.0H, Eosinophils (%) (Auto) 3.4H, Basophils (%) (Auto) 0.7, Neutrophils # (Auto) 3.8, Lymphocytes # (Auto) 0.7L, Monocytes # (Auto) 0.7, Eosinophils # (Auto) 0.2, Basophils # (Auto) 0.0, Nucleated Red Blood Cells % (auto) 0.0, Anion Gap 8, Glomerular Filtration Rate > 60.0, Calcium Level 7.9L, Total Bilirubin 0.4, Aspartate Amino Transf (AST/SGOT) 19, Alanine Aminotransferase (ALT/SGPT) 22, Alkaline Phosphatase 106, Total Protein 6.9, Albumin 2.8L, Albumin/Globulin Ratio 0.7, Vancomycin Level Trough 15.1 04/27/20 12:06: Bedside Glucose (Misc Panel) 225H CBC/BMP Laboratory Tests 04/27/20 04:59 FSBS Laboratory Tests Test 04/26/20 16:23 04/26/20 20:39 04/27/20 12:06 Range/Units Bedside Glucose (Misc Panel) 210 240 225 80-115 MG/DL Microbiology Microbiology 04/25/20 Blood Culture - Preliminary, Resulted No growth after 24 hours . All specim... 04/25/20 Urine Culture - Final, Complete Discharge Medications Scheduled Ascorbic Acid (Vitamin C) 250 Mg Tab, 500 MG PO BID, (Reported) Ciprofloxacin HCl (Cipro) 500 Mg Tablet, 500 MG PO BID Lisinopril (Lisinopril) 5 Mg Tab, 5 MG PO DAILY, (Reported) Metformin HCl (Metformin HCl ER) 500 Mg Tab.er.24h, 1,000 MG PO BID, (Reported) LUNCH AND DINNER Multivitamin (Multivitamins) 1 Cap Cap, 1 CAP PO DAILY, (Reported) LUNCH Omeprazole (Omeprazole) 20 Mg Cap, 20 MG PO DAILY, (Reported) Oxybutynin Chloride (Ditropan Xl) 5 Mg Tab.er.24, 5 MG PO DAILY Simvastatin (Simvastatin) 40 Mg Tablet, 40 MG PO QHS, (Reported) Sitagliptin Phosphate (Januvia) 100 Mg Tablet, 100 MG PO DAILY, (Reported) Testosterone (Testosterone) 75 Gm Gel.office messenger helper, 150 GM TOP DAILY, (Reported) Scheduled PRN Acetaminophen (Acetaminophen) 500 Mg Tablet, 1,000 MG PO Q6H PRN for PAIN, (Reported) Amitriptyline HCl (Amitriptyline HCl) 75 Mg Tablet, 18.75 MG PO QHS PRN for LEG CRAMPS, (Reported) TAKES 1/4 TO 1 TABLET Allergies Coded Allergies: Penicillins (Verified Allergy, Unknown, 04/25/20) sulfamethoxazole (Verified Allergy, Unknown, 04/25/20) trimethoprim (Verified Allergy, Unknown, 04/25/20) BANDAR SEGOVIA MD Apr 27, 2020 14:45
== END 2020-04-27 16:20 | disposition home or self-care (01) | DRG 698 ==
LOC: M ED 01:36 → M ED INP 04:52 → ENRESERV 05:02 → M MS5PR 05:50
PROVIDERS: ADMIT Internal Medicine; ATTEND Internal Medicine
DX: T83.518A Infection and inflammatory reaction due to other urinary catheter, initial encounter (principal); L89.154 Pressure ulcer of sacral region, stage 4; G82.20 Paraplegia, unspecified; E87.1 Hypo-osmolality and hyponatremia; N30.91 Cystitis, unspecified with hematuria; E11.9 Type 2 diabetes mellitus without complications; K21.9 Gastro-esophageal reflux disease without esophagitis; I10 Essential (primary) hypertension; Z79.899 Other long term (current) drug therapy; Z88.0 Allergy status to penicillin; Z88.2 Allergy status to sulfonamides; Z88.8 Allergy status to other drugs, medicaments and biological substances; Y84.6 Urinary catheterization as the cause of abnormal reaction of the patient, or of later complication, without mention of misadventure at the time of the procedure

== ENCOUNTER 2021-11-15 11:41 | Inpatient (IN) | payer MEDICAID, MEDICARE ==
[~2021-11-15] VITALS: Ht 182.9 cm; Wt 90.5 kg
[2021-11-15] MEDS: OMEPRAZOLE 20MG CAP PO SCH (09:00)
[~2021-11-15 11:41] MED LIST changes: +ACET-683 PO; +AMIT75TA PO; +CIPR-249 PO; +DITR5TAB PO; +JANU100T PO; -LISI-542 PO; +LISI5TAB11 PO; +METF-838 PO; +SIMV40TA20 PO; +TEST75GE TOP; +lisinopriL 5 MG TAB PO SCH
[2021-11-15] MEDS ORDERED: ACETAMINOPHEN TAB 650MG DOSE (2X325MG) PO ONE (12:15)
[2021-11-15] MEDS ORDERED: ONDANSETRON 4MG/2ML VIAL IV ONE (12:15)
[2021-11-15] MEDS ORDERED: LevoFLOXacin IV 750 MG in IV 1 EA IV ONE (12:25)
[2021-11-15] MEDS ORDERED: NS 1,000 ML IV ONE ×3 (12:25→15:25)
[2021-11-15 12:32] LABS: BASO % 0.2 % (0.0-1.0); HEMATOCRIT 35.8 % (42.0-52.0); HEMOGLOBIN 11.9 g/dl (13.5-17.5); LYMPH # 0.3 10^3/uL (1.5-5.0); MEAN CORPUSCULAR HEMOGLOBIN 28.3 pg (27.0-33.0); MEAN CORPUSCULAR HGB CONC 33.2 g/dl (32.0-36.5); MONO # 0.5 10^3/uL (0.0-0.8); MONO % 4.2 % (2.0-8.0); NEUTROPHILS # 11.3 10^3/uL (1.5-8.5); NEUTROPHILS % 92.5 % (36.0-66.0); PLATELET COUNT, AUTOMATED 360 10^3/uL (150-450); RED BLOOD COUNT 4.21 10^6/uL (4.30-6.10); WHITE BLOOD COUNT 12.2 10^3/uL (4.0-10.0)
[2021-11-15 12:43] LABS: APPEARANCE, URINE CLOUDY (CLEAR); BACTERIA, URINE AUTO 3+ (NEGATIVE); BILIRUBIN, URINE AUTO NEGATIVE (NEGATIVE); BLOOD, URINE BLOOD 3+ (NEGATIVE); COLOR, URINE YELLOW (YELLOW); GLUCOSE, URINE (UA) AUTO 3+ mg/dL (NEGATIVE); KETONE, URINE AUTO 2+ mg/dL (NEGATIVE); LEUKOCYTE ESTERASE, URINE AUTO 2+ (NEGATIVE); MUCUS, URINE SMALL (NEGATIVE); NITRITE, URINE AUTO NEGATIVE (NEGATIVE); PROTEIN, URINE AUTO 2+ mg/dL (NEGATIVE); RBC, URINE AUTO 54 /HPF (0-3); SPECIFIC GRAVITY URINE AUTO 1.023 (1.002-1.035); SQUAMOUS EPITHELIAL CELL UR AU 0 /HPF (0-6); UROBILINOGEN, URINE AUTO 0.2 mg/dL (0.0-2.0); WBC, URINE AUTO 132 /HPF (0-3)
[2021-11-15] MEDS ORDERED: GLIM4TAB5 PO (12:50)
[2021-11-15 12:56] LABS: BLOOD UREA NITROGEN 18 MG/DL (7-18); CARBON DIOXIDE LEVEL 24 MEQ/L (21-32); CHLORIDE LEVEL 90 MEQ/L (98-107); CREATININE FOR GFR 0.83 MG/DL (0.70-1.30); GLOMERULAR FILTRATION RATE > 60.0 (>49); GLUCOSE, FASTING 341 MG/DL (70-100); SODIUM LEVEL 127 MEQ/L (136-145)
[2021-11-15 12:57] LABS: ALT/SGPT 18 U/L (12-78); BILIRUBIN,DIRECT 0.2 MG/DL (0.0-0.2); BILIRUBIN,TOTAL 0.6 MG/DL (0.2-1.0); CALCIUM LEVEL 8.8 MG/DL (8.8-10.2); LIPASE 56 U/L (73-393); TOTAL PROTEIN 8.2 GM/DL (6.4-8.2)
[2021-11-15] MEDS ORDERED: METF-838 PO (13:01)
[2021-11-15] MEDS ORDERED: MULTTAB61 PO (13:01)
[2021-11-15] MEDS ORDERED: HOME MED LIST COMPLETE! XX SCH (13:05)
[2021-11-15] MEDS ORDERED: ISOVUE-370 76% 100ML VIAL As Ordered ONE (13:43)
[2021-11-15] MEDS ORDERED: METOCLOPRAMIDE INJ 10MG/2ML VIAL (J2765 PER 1) IV ONE (14:50)
[2021-11-15] MEDS ORDERED: GLUCAGON INJ 1MG VIAL SC PRN (15:55)
[2021-11-15] MEDS ORDERED: DEXTROSE 50% 50 ML SYRINGE IV PRN (15:55)
[2021-11-15] MEDS ORDERED: GLUCOSE 4GM CHEW TABLET PO PRN (15:55)
[2021-11-15] MEDS ORDERED: BISACODYL 10 MG SUPP PR PRN (16:20)
[2021-11-15] MEDS ORDERED: AMITRIPTYLINE 25MG TABLET PO PRN (16:20)
[2021-11-15] MEDS ORDERED: MIRALAX *UNIT DOSE* 17GM PACKET PO PRN (16:20)
[2021-11-15] MEDS: HumaLOG INSULIN (NovoLOG) PER UNIT SC SCH ×2 (17:30→21:38)
[2021-11-15 17:34] LABS: INR 1.24
[2021-11-15] MEDS: LACTOBACILLUS ACIDOPHILUS CAP (BACID) PO SCH (19:06)
[2021-11-15] MEDS: ACETAMINOPHEN TAB 650MG DOSE (2X325MG) PO PRN ×2 (19:06→22:57)
[2021-11-15 19:45] VITALS: BP 110/54
[2021-11-15 20:00] VITALS: BP 104/56
[2021-11-15] MEDS: DOCUSATE SODIUM 100MG CAPSULE PO SCH (21:37)
[2021-11-15] MEDS: SIMVASTATIN 40 MG TAB PO SCH (21:38)
[2021-11-15] MEDS: ASCORBIC ACID 250 MG TAB PO SCH (21:38)
[2021-11-15] MEDS: NS 1,000 ML IV SCH (21:39)
[2021-11-16] VITALS: BP 119/56
[2021-11-16 04:00] VITALS: BP 133/57
[2021-11-16] MEDS: NS 1,000 ML IV SCH (05:54)
[2021-11-16 06:06] LABS: HEMATOCRIT 30.5 % (42.0-52.0); HEMOGLOBIN 10.1 g/dl (13.5-17.5); MEAN CORPUSCULAR HEMOGLOBIN 28.2 pg (27.0-33.0); MEAN CORPUSCULAR HGB CONC 33.1 g/dl (32.0-36.5); MEAN CORPUSCULAR VOLUME 85.2 fl (80.0-96.0); RED BLOOD COUNT 3.58 10^6/uL (4.30-6.10); WHITE BLOOD COUNT 7.1 10^3/uL (4.0-10.0)
[2021-11-16 06:11] LABS: PLATELET COUNT, AUTOMATED 247 10^3/uL (150-450)
[2021-11-16 06:35] LABS: BLOOD UREA NITROGEN 11 MG/DL (7-18); CALCIUM LEVEL 7.9 MG/DL (8.8-10.2); CARBON DIOXIDE LEVEL 24 MEQ/L (21-32); CHLORIDE LEVEL 101 MEQ/L (98-107); CREATININE FOR GFR 0.53 MG/DL (0.70-1.30); GLOMERULAR FILTRATION RATE > 60.0 (>49); GLUCOSE, FASTING 230 MG/DL (70-100); POTASSIUM SERUM 3.3 MEQ/L (3.5-5.1); SODIUM LEVEL 132 MEQ/L (136-145)
[2021-11-16] MEDS ORDERED: POTASSIUM CHLORIDE 10MEQ SR TABLET PO ONE (07:20)
[2021-11-16] MEDS: OMEPRAZOLE 20MG CAP PO SCH (08:17)
[2021-11-16] MEDS: ASCORBIC ACID 250 MG TAB PO SCH ×2 (08:17→20:04)
[2021-11-16] MEDS: LACTOBACILLUS ACIDOPHILUS CAP (BACID) PO SCH ×2 (08:17→17:32)
[2021-11-16] MEDS: DOCUSATE SODIUM 100MG CAPSULE PO SCH ×2 (08:17→20:04)
[2021-11-16] MEDS: HumaLOG INSULIN (NovoLOG) PER UNIT SC SCH ×4 (08:18→20:05)
[2021-11-16 08:29] VITALS: BP 133/50
[2021-11-16] MEDS: ACETAMINOPHEN TAB 650MG DOSE (2X325MG) PO PRN (11:42)
[2021-11-16] MEDS ORDERED: LevoFLOXacin IV 750 MG in IV 1 EA IV SCH (12:00)
[2021-11-16 12:21] VITALS: BP 132/60
[2021-11-16 16:00] VITALS: BP 130/61
[2021-11-16 19:46] VITALS: BP 141/64
[2021-11-16] MEDS: SIMVASTATIN 40 MG TAB PO SCH (20:04)
[2021-11-16] MEDS ORDERED: ENOXAPARIN 40MG/0.4ML SYRINGE (J1650 PER 10MG) SC SCH (21:00)
[2021-11-17] VITALS: BP 136/66
[2021-11-17 04:11] VITALS: BP 131/60
[2021-11-17] MEDS ORDERED: LEVO750T13 PO (07:49)
[2021-11-17] MEDS ORDERED: LEVEMIR (INSULIN DETEMIR) 1 UNITS/0.01ML SC ONE (07:50)
[2021-11-17 07:58] LABS: HEMATOCRIT 31.6 % (42.0-52.0); HEMOGLOBIN 10.3 g/dl (13.5-17.5); MEAN CORPUSCULAR HEMOGLOBIN 28.1 pg (27.0-33.0); MEAN CORPUSCULAR HGB CONC 32.6 g/dl (32.0-36.5); MEAN CORPUSCULAR VOLUME 86.3 fl (80.0-96.0); PLATELET COUNT, AUTOMATED 242 10^3/uL (150-450); RED BLOOD COUNT 3.66 10^6/uL (4.30-6.10); WHITE BLOOD COUNT 5.7 10^3/uL (4.0-10.0)
[2021-11-17] MEDS: HumaLOG INSULIN (NovoLOG) PER UNIT SC SCH (08:01)
[2021-11-17] MEDS: OMEPRAZOLE 20MG CAP PO SCH (08:02)
[2021-11-17] MEDS: LACTOBACILLUS ACIDOPHILUS CAP (BACID) PO SCH (08:02)
[2021-11-17] MEDS: DOCUSATE SODIUM 100MG CAPSULE PO SCH (08:02)
[2021-11-17] MEDS: ASCORBIC ACID 250 MG TAB PO SCH (08:02)
[2021-11-17 08:20] VITALS: BP 135/65
[2021-11-17 08:24] LABS: BLOOD UREA NITROGEN 7 MG/DL (7-18); CALCIUM LEVEL 8.3 MG/DL (8.8-10.2); CARBON DIOXIDE LEVEL 25 MEQ/L (21-32); CHLORIDE LEVEL 102 MEQ/L (98-107); CREATININE FOR GFR 0.48 MG/DL (0.70-1.30); GLOMERULAR FILTRATION RATE > 60.0 (>49); GLUCOSE, FASTING 241 MG/DL (70-100); POTASSIUM SERUM 3.4 MEQ/L (3.5-5.1); SODIUM LEVEL 133 MEQ/L (136-145)
== END 2021-11-17 12:59 | disposition home or self-care (01) | DRG 698 ==
LOC: M ED 11:41 → M ED INP 15:53 → ENRESERV 17:16 → M PCU 19:45
PROVIDERS: ADMIT Internal Medicine; ATTEND General Practice
DX: T83.511A Infection and inflammatory reaction due to indwelling urethral catheter, initial encounter (principal); A41.53 Sepsis due to Serratia; L89.213 Pressure ulcer of right hip, stage 3; E87.1 Hypo-osmolality and hyponatremia; G82.20 Paraplegia, unspecified; I10 Essential (primary) hypertension; E11.9 Type 2 diabetes mellitus without complications; K21.9 Gastro-esophageal reflux disease without esophagitis; E78.5 Hyperlipidemia, unspecified; K59.00 Constipation, unspecified; E87.6 Hypokalemia; Z79.899 Other long term (current) drug therapy; Z88.0 Allergy status to penicillin; Z88.8 Allergy status to other drugs, medicaments and biological substances; Y84.6 Urinary catheterization as the cause of abnormal reaction of the patient, or of later complication, without mention of misadventure at the time of the procedure